=== PATIENT | male | born 1975 | race American Indian/Alaskan Native ===

== ENCOUNTER 2017-11-06 10:07 | Outpatient (CLI) | payer BC ==
--- NOTE | 2017-11-06 11:16 | XRay Report ---
LEFT WRIST, 4 views: HISTORY: Left wrist pain. Routine views demonstrate the carpal bones to be well mineralized with well preserved bony mineralization and interosseous joint spaces. The carpal and adjacent articular bones have normal contours. The surrounding soft tissues are unremarkable. IMPRESSION: Normal study.
== END 2017-11-06 10:08 | disposition home or self-care (01) ==
LOC: XRAY 10:07
PROVIDERS: ATTEND Orthopaedic Surgery
DX: M25.532 Pain in left wrist (principal)

== ENCOUNTER 2017-11-18 07:41 | Outpatient (CLI) | payer BC ==
--- NOTE | 2017-11-19 10:29 | Magnetic Resonance Report ---
FINAL REPORT PROCEDURE: MR UE JOINT LT WO CON TECHNIQUE: Multi planar multi sequence MR imaging of the left wrist was performed. HISTORY: PAIN IN LEFT WRIST COMPARISON: None FINDINGS: There is a small effusion. Edema possibly due to repetitive stress of the mid to distal scaphoid without suspected underlying microfracture is present. There is no carpal collapse or sclerosis to suggest avascular necrosis. There is no ligamentous tear. 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 There is no flexor or extensor tendinopathy or tendon tear. The extensor carpi ulnaris tendon is normally placed within the ulnar groove. The flexor retinaculum is intact. The median nerve is normal in size and signal intensity. There is no solid or cystic lesion of the soft tissues. There is no abnormal signal intensity to suggest intramuscular hematoma/muscular strain. IMPRESSION: Edema possibly due to repetitive stress or posttraumatic bone bruise without associated fracture of the scaphoid. Small effusion. 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
== END 2017-11-18 07:42 | disposition home or self-care (01) ==
LOC: MRI 07:41
PROVIDERS: ATTEND Orthopaedic Surgery
DX: M19.032 Primary osteoarthritis, left wrist (principal)